=== PATIENT | female | born 1965 | race African-American/Black ===

== ENCOUNTER 2017-01-21 19:26 | Emergency (ER) | payer BC ==
[~2017-01-21] VITALS: Ht 165.1 cm; Wt 89.3 kg
--- NOTE | ~2017-01-21 | CT2 ---
[facility] A Service of [facility] RADIOLOGY TEXT RESULTS PATIENT: HILARIO YUN LOCATION: [facility] : 63 UNIT #: [id number] AGE: [address]: RUDDY COLLIER APRN SEX: F ORDER DR: [id number] [facility] [address] [place], [place] [address] [id number] E MR#: [id number] Acc #: [id number] NAME: HILARIO YUN. : 1965 SEX: F STUDY DATE/TIME: 01/22/2017 1:11 UNIT: [facility] ROOM: STUDY DESCRIPTION: CT Abd and Pelv W Cont Attending Physician: Ruddy Collier Aprn Ordering Physician: Ruddy Collier Aprn Primary Care Physician: No Primary Care Physician MEDICAL IMAGING REPORT This report is preliminary unless electronic signature is present EXAM CT abdomen and pelvis with contrast 01/22/2017. HISTORY 51-year-old female in the ED complaining of 7-day history of right lower quadrant abdomen pain, nausea and vomiting. TECHNIQUE CT examination of the abdomen and pelvis with oral and IV contrast. This CT exam was performed with one or more of the following radiation dose reduction techniques: automatic exposure control, adjustment of mA and/or kV according to patient size, and iterative reconstruction. FINDINGS Abdomen findings: Cholecystectomy. No bile duct dilatation. Liver, pancreas and spleen are normal in size and appearance. Congenital horseshoe kidney. Tiny nonobstructing calculus in the right upper kidney. No evidence of urinary obstruction. Small bowel and colon are normal in caliber and appearance. The appendix is normal. Normal-caliber abdominal aorta. Pelvis findings: Hysterectomy. Urinary bladder and rectum are within normal limits. No mass, adenopathy or fluid collection within the abdomen or pelvis. No inguinal hernia. Limited lung base images show no active disease in the lower chest. IMPRESSION 1. No acute abnormality within the abdomen or pelvis. [facility] A Service of [facility] RADIOLOGY TEXT RESULTS PATIENT: HILARIO YUN LOCATION: [facility] : 63 UNIT #: [id number] AGE: [address]: RUDDY COLLIER APRN SEX: F ORDER DR: 2. Cholecystectomy. No bile duct dilatation. 3. Congenital horseshoe kidney. Single tiny nonobstructing calculus in the upper right kidney. This is unchanged since 05/25/2016. 4. Normal appendix. 5. Hysterectomy. Dictated by... Christopher Machado M.D. THIS IS AN ELECTRONICALLY VERIFIED REPORT Christopher Machado M.D. at 01/22/2017 4:46 PM MYNOR/tamar TD: 01/22/2017 11:29 JOB #: [id number] MEDICAL IMAGING REPORT Page 1 of 1 COPY
[~2017-01-21 19:26] MED LIST: ACETAMINOPHEN PO; ASPIRIN81 MG PO; LORTAB 7.51 TAB 7.5/ PO; PROTONIX PO
[2017-01-21 19:56] LABS: BASOPHIL% 0.4 % (0-2.5); EOSINOPHIL% 0.2 % (0.0-7.0); HEMATOCRIT 41.6 % (35.0-45.0); HEMOGLOBIN 13.9 gm/dL (12.0-16.0); LYMPHOCYTE# 1.8 X10e3 (1.0-3.5); LYMPHOCYTE% 16.1 % (17.0-45.0); MEAN CELL VOLUME 89.2 FL (83-96); MEAN CORPUSCULAR HEMOGLOBIN 29.8 PG (28-34); MEAN CORPUSCULAR HGB CONC 33.4 g/dL (30-36); MEAN PLATELET VOLUME 8.5 FL (6.5-11.5); MONOCYTE# 0.7 X10e3 (0-1.0); MONOCYTE% 6.3 % (3.0-12.0); NEUTROPHIL# 8.7 X10e3 (1.5-7.1); PLATELET COUNT 202 X10e3 (140-420); RED BLOOD COUNT 4.67 X10e (3.90-5.30); RED CELL DISTRIBUTION WIDTH 14.1 % (11.0-15.5); WHITE BLOOD COUNT 11.3 X10e3 (4.0-10.5)
[2017-01-21 20:16] LABS: DIFF IND NO
[2017-01-21 20:21] LABS: ALBUMIN SERUM 4.6 g/dL (3.5-5.0); BILIRUBIN, DIRECT 0.1 mg/dL (0.0-0.2); BILIRUBIN,INDIRECT 0.8 mg/dL (0.0-0.9); BILIRUBIN,TOTAL 0.9 mg/dL (0.2-2.0); BUN/CREATININE RATIO 16.25; CALCIUM SERUM 9.8 mg/dL (8.4-10.2); CREATININE SERUM 0.8 mg/dL (0.6-1.4); GLOM FILT RATE Estimated 98.3 mL/min (>60); PROTEIN TOTAL SERUM 8.5 g/dL (6.0-8.3)
[2017-01-21 20:30] LABS: URINE SOURCE CLEAN CATCH
[2017-01-21 20:34] LABS: URINE APPEARANCE TURBID; URINE BILIRUBIN NEG (NEG); URINE BLOOD 3+ (NEG); URINE COLOR YELLOW; URINE GLUCOSE NEG (NEG); URINE KETONE NEG (NEG); URINE LEUKOCYTE ESTERASE 3+ (NEG); URINE NITRATE POS (NEG); URINE PROTEIN 2+ (NEG); URINE SPECIFIC GRAVITY 1.016 (1.003-1.035); URINE UROBILINOGEN 0.2 MG/DL (NEG)
[2017-01-21 20:37] LABS: CULTURE INDICATED? YES; U HYALINE CASTS AUWI 0-2 /[LPF]; URINE BACTERIA AUWI 4+ (NEGATIVE); URINE SQUAMOUS EPITHELIAL CELL OCC /[HPF]; UWBCS1 AUWI INNUM (0-5)
[2017-01-24 06:03] LABS: CHLAMYDIA TRACH Not Detected (Not Detected); N GONOR Not Detected (Not Detected)
== END 2017-01-22 05:12 | disposition home or self-care (01) ==
LOC: CED 19:26
PROVIDERS: Nurse Practitioner Family
DX: N39.0 Urinary tract infection, site not specified (principal); N10 Acute pyelonephritis; Z90.49 Acquired absence of other specified parts of digestive tract; Z90.710 Acquired absence of both cervix and uterus
CPT/HCPCS: 36415; 74177; 80048; 80076; 81003; 83690; 84703; 85025; 87086; 87088; 87186; 87491; 87591; 87808; 87905; 96361; 96365; 96375; 99284; J0696; J2270; J2405; Q9967